=== PATIENT | female | born 1960 | race Two or more races ===

== ENCOUNTER 2017-08-14 11:14 | Outpatient (CLI) | payer OTHER ==
[~2017-08-14 11:14] MED LIST: CARAFATE SU1 G/10 ML PO
== END 2017-08-14 11:19 | disposition home or self-care (01) ==
LOC: MAMO-SONO 11:14
DX: Z12.31 Encounter for screening mammogram for malignant neoplasm of breast (principal); Z87.898 Personal history of other specified conditions; N61.0 Mastitis without abscess

== ENCOUNTER → 2018-08-21 | Outpatient (CLI) | payer OTHER | END | disposition home or self-care (01) | LOC: MAMO-SONO 11:15 | DX: Z12.31 Encounter for screening mammogram for malignant neoplasm of breast (principal); Z87.898 Personal history of other specified conditions; N61.0 Mastitis without abscess ==

== ENCOUNTER 2020-11-24 11:33 | Outpatient (CLI) | payer OTHER | END 2020-11-24 11:36 | disposition home or self-care (01) | LOC: NUCLEAR 11:33 | PROVIDERS: ATTEND General Practice | DX: M85.80 Other specified disorders of bone density and structure, unspecified site (principal); M81.0 Age-related osteoporosis without current pathological fracture ==

== ENCOUNTER 2020-11-24 12:05 | Outpatient (CLI) | payer OTHER | END 2020-11-24 12:10 | disposition home or self-care (01) | LOC: MAMO-SONO 12:05 | PROVIDERS: ATTEND Specialist | DX: N60.11 Diffuse cystic mastopathy of right breast (principal); Z12.31 Encounter for screening mammogram for malignant neoplasm of breast; N60.12 Diffuse cystic mastopathy of left breast ==

== ENCOUNTER 2023-08-16 12:17 | Outpatient (CLI) | payer OTHER | END 2023-08-16 12:18 | disposition home or self-care (01) | LOC: NUCLEAR 12:17 | PROVIDERS: ATTEND General Practice | DX: M81.0 Age-related osteoporosis without current pathological fracture (principal) ==

== ENCOUNTER → 2023-08-16 | Outpatient (CLI) | payer OTHER | END | disposition home or self-care (01) | LOC: MAMO-SONO 11:53 | PROVIDERS: ATTEND General Practice | DX: N60.01 Solitary cyst of right breast (principal); N60.02 Solitary cyst of left breast; Z12.31 Encounter for screening mammogram for malignant neoplasm of breast ==

== ENCOUNTER 2024-03-12 08:05 | Outpatient (CLI) | payer OTHER | END 2024-03-12 08:11 | disposition home or self-care (01) | LOC: SONOGRAMA 08:05 | DX: R74.01 Elevation of levels of liver transaminase levels (principal) ==